=== PATIENT | female | born 1985 | race Caucasian/White ===

== ENCOUNTER 2022-05-15 20:30 | Emergency (ER) | payer SELFPAY ==
[~2022-05-15] VITALS: Ht 160 cm; Wt 63.6 kg
[2022-05-15 20:42] VITALS: BP 140/100
[2022-05-15] MEDS ORDERED: FLUORESCEIN SOD OPTH TEST STRIP LEFTEYE ONE (21:45)
[2022-05-15] MEDS ORDERED: TETRACAINE HCL 0.5% OPTH(EYE) SOLN 4ML LEFTEYE ONE (21:45)
[2022-05-15] MEDS ORDERED: ERY05OO OP (22:08)
== END 2022-05-15 22:20 | disposition home or self-care (01) ==
LOC: ER 20:30
DX: S05.02XA Injury of conjunctiva and corneal abrasion without foreign body, left eye, initial encounter (principal); X58.XXXA Exposure to other specified factors, initial encounter; Y93.89 Activity, other specified; Y92.89 Other specified places as the place of occurrence of the external cause; Y99.8 Other external cause status